=== PATIENT | female | born 1970 | race Caucasian/White ===

== ENCOUNTER 2024-02-28 11:26 | Emergency (ER) | payer MEDICAID, SELFPAY ==
[2024-02-28 11:30] VITALS: BP 139/83; PULSE 54; RESP 18; TEMP 36.5; O2SAT 98; BMI 24.0
--- NOTE | 2024-02-28 12:07 | CRLHL7_ITS ---
For Patients: As a result of the Century Cures Act, medical imaging exams and procedure reports are released immediately into your electronic medical record. You may view this report before your referring provider. If you have questions, please contact your health care provider. INDICATION: Chest pain, history of thoracic aortic aneurysm measuring 4.2 centimeters. TECHNIQUE: CT chest PE was acquired with 95 cc Isovue 370 intravenous contrast. COMPARISON: None. FINDINGS: Heart and vasculature: Contrast opacification of the pulmonary arterial tree is adequate. No sign of pulmonary embolism. Contrast opacification is not timed for optimization of the thoracic aorta limited evaluation of the lumen. Ascending thoracic aorta measures 4.2 centimeters. No pericardial effusion. Lungs and pleural: No pleural effusion or pneumothorax. Scattered areas of discoid atelectasis lung bases. Calcified granuloma within the lingula and right lower lobe. Lymph nodes/mediastinum: No mediastinal, hilar, or axillary adenopathy. Chest wall: No masses. Upper abdomen: Normal. Bones: Unremarkable for age. IMPRESSION: 1. No evidence of pulmonary embolus. 2. Fusiform enlargement of the ascending thoracic aorta. This has mildly enlarged compared to the 2019 examination (3.8 cm) although this measures unchanged from the given history. 3. Old granulomatous disease. Discoid atelectasis lung bases. Please note that all CT scans at this facility use dose modulation, iterative reconstruction, and/or weight-based dosing when appropriate to reduce radiation dose to as low as reasonably achievable. Dictated by Arnold Cherry MD @ 02/28/2024 12:56:12 PM (Electronically Signed)
--- NOTE | 2024-02-28 12:09 | ED_ITS ---
HPI - General Adult General Chief complaint: Unspecified Complaint, Adult Stated complaint: sent from [facility] Time Seen by Provider: 02/28/24 11:41 History of Present Illness HPI narrative: This 53-year-old female comes from clinic where she is sent here for CT angiogram of her chest. She had an echocardiogram at clinic with reassuring results. I did receive a phone call from the patient's doctor who requested she be sent here for CT angiogram. The patient had an episode of chest pain yesterday that lasted about 10 minutes. She was doing light activity at the time and states that the pain was really emanating from her mid upper back. She does have a history of a 4.2 cm thoracic aneurysm. She does not report any nausea, vomiting, lightheadedness, shortness of breath, or diaphoresis. 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 She does not report any prior exertional chest symptoms. She states that she has not been feeling quite right however over the past couple weeks and since the chest pain yesterday she has been more tired and fatigued. Related Data Home Medications ?Medication ?Instructions ?Recorded ?Confirmed trazodone 50 mg tablet 50 mg PO QPM PRN insomnia 02/28/24 02/28/24 Previous Rx's ?Medication ?Instructions ?Recorded ketorolac 10 mg tablet 10 mg PO Q8H 5 days #15 tabs 02/28/24 Allergies Allergy/AdvReac Type Severity Reaction Status Date / Time No Known Drug Allergies Allergy Verified 02/28/24 11:33 Review of Systems Status of ROS: Reports: 10 or more systems reviewed and unremarkable except as noted in History and below Narrative: Constitutional: No fevers, no weight gain or loss. Eyes: No discharge. No vision changes. HENT: No congestion, no sore throat, no ear pain. Cardiovascular: No palpitations. Respiratory: No shortness of breath, no wheezes, no cough. Gastrointestinal: No abdominal pain, no vomiting, no diarrhea. Genitourinary: No dysuria, no hematuria. Musculoskeletal: Normal range of motion. Skin: No rashes, no pruritis. Neurological: No dizziness, weakness, sensory change, speech change. Endo/Heme/Allergies: No bruising or bleeding. No polydipsia. Pysch: no suicidality, no anxiety, no insomnia. All other systems reviewed and are negative. PFSH PFSH Social History Smoking Status: Current every day smoker What tobacco products do you use: cigarettes Do you use any of these nicotine containing products: None How often do you have a drink containing alcohol: never AUDIT-C Alcohol total score: 0 Non-prescribed substance use: marijuana (any form) service: No Exam Narrative: Exam Narrative: Constitutional: Well-developed, well-nourished, no acute distress. HEENT: Normocephalic, atraumatic. Neck: Normal range of motion. Nontender. Supple. Heart: Regular. No murmurs. Normal rate. Intact distal pulses. Lungs: Clear to auscultation. No chest discomfort. No wheezes, rhonchi, or rales. Abdomen: Normal bowel sounds. Nontender. No rebound tenderness. Genitalia: Deferred. Back: No midline tenderness. Normal range of motion. Extremities: Normal range of motion. No injury. Skin: Intact. No rash. Warm. No erythema or pallor. Neurologic: No altered sensation. No weakness. Alert and oriented. Psychiatric: No suicidality. No anxiety or depression. No insomnia. Nursing notes and vitals signs are reviewed. Const: Vital Signs, click to edit/add: Vital Signs - 24 hr 02/28/24 11:30 02/28/24 12:51 Temperature 97.7 F Pulse Rate 61 Pulse Rate [Right Pulse Oximeter] 54 L Respiratory Rate 18 Blood Pressure 128/71 Blood Pressure [Ri ght Upper Arm] 139/83 Pulse Oximetry 98 96 Oxygen Delivery Me thod Room Air Course Vital Signs Vital signs: Initial Vital Signs Temperature 97.7 F 02/28/24 11:30 Temperature Source Temporal Artery Scan 02/28/24 11:30 Pulse Rate 54 L 02/28/24 11:30 Respiratory Rate 18 02/28/24 11:30 Blood Pressure 139/83 02/28/24 11:30 Blood Pressure Mean 101 02/28/24 11:30 Blood Pressure Position Sitting 02/28/24 11:30 Pulse Oximetry 98 02/28/24 11:30 Oxygen Delivery Method Room Air 02/28/24 11:30 Vital Signs Temperature 97.7 F 02/28/24 11:30 Pulse Rate 54 L 02/28/24 11:30 Respiratory Rate 18 02/28/24 11:30 Blood Pressure 139/83 02/28/24 11:30 Pulse Oximetry 98 02/28/24 11:30 Oxygen Delivery Method Room Air 02/28/24 11:30 Temperature 97.7 F 02/28/24 11:30 Pulse Rate 61 02/28/24 12:51 Respiratory Rate 18 02/28/24 11:30 Blood Pressure 128/71 02/28/24 12:51 Pulse Oximetry 96 02/28/24 12:51 Oxygen Delivery Method Room Air 02/28/24 11:30 Medical Decision Making MDM Narrative Medical decision making narrative: This patient was sent here for purposes of acquiring a CT angiogram of the chest. The patient had chest pain yesterday and is not having any symptoms currently. It was an isolated event yesterday lasting about 10 minutes. She did have an echocardiogram in clinic today and was sent here for CT imaging. An IV was established and CT imaging of the chest returns with no acute findings. There is no pulmonary embolism no sign of dissection. Her thoracic aorta measures at 3.8 cm. Lab results are also reassuring with a negative troponin. The patient was happy to hear these results in will be okay to be discharged home. I did provide a prescription for Toradol. Lab Data Labs: Lab Results 02/28/24 02/28/24 Range/Units 12:28 12:47 WBC 9.09 (4.50-11.00) K/uL RBC 4.64 (4.00-5.20) m/uL Hgb 14.2 (12.0-16.0) gm/dL Hct 42.4 (33.0-51.0) % MCV 91 (80-100) fL MCH 31 (26-34) pg MCHC 34 (32-36) gm/dL RDW Coeff of Gloria 11.9 (11.5-15.5) % Plt Count 218 (140-440) K/uL Neut % (Auto) 62.8 (42.0-72.0) % Lymph % (Auto) 29.2 (20-44) % Sheridan % (Auto) 6.4 (0.0-11.0) % Eos % (Auto) 1.2 (0.0-7.0) % Baso % (Auto) 0.3 (0.0-3.0) % Neut # (Auto) 5.71 (1.7-7.0) K/uL Lymph # (Auto) 2.65 (0.90-2.90) K/uL Sheridan # (Auto) 0.60 (0.00-0.90) K/UL Eos # (Auto) 0.11 (0.00-0.50) K/uL Baso # (Auto) 0.03 (0.00-0.30) K/uL Abs Immat Gran (auto) 0.01 (0.00-0.30) K/uL Imm/Tot Granulo (auto) 0.1 % Sodium 138 (135-149) mmol/L Potassium 4.0 (3.6-5.1) mmol/L Chloride 109 (96-114) mmol/L Carbon Dioxide 25 (20-32) mmol/L Anion Gap 4 L (7-15) mEq/L BUN 10 (7-30) mg/dL Creatinine 0.6 (0.5-1.5) mg/dL Estimated Creat Clear 92.56 Estimated GFR 107 ml/min Glucose 97 (60-115) mg/dL Calcium 9.3 (8.4-10.6) mg/dL C-Reactive Protein 0.5 (0.5-1.0) mg/dL POC Troponin I 0.00 L (0.01-0.04) ng/ml Imaging Data CT scan - chest: Radiologist's impression: 1. No evidence of pulmonary embolus. 2. Fusiform enlargement of the ascending thoracic aorta. This has mildly enlarged compared to the 2019 examination (3.8 cm) although this measures unchanged from the given history. 3. Old granulomatous disease. Discoid atelectasis lung bases. Discharge Plan Discharge Clinical Impression: Atypical chest pain Patient Disposition: Home, Self-Care Condition: Stable Additional Instructions: Continue current plans. Follow up with MD as scheduled and needed. Return if worsening. Prescriptions: New ketorolac 10 mg tablet 10 mg PO Q8H 5 Days Qty: 15 0RF No Action trazodone 50 mg tablet 50 mg PO QPM PRN (Reason: insomnia) Follow Up/Referrals: Nguyen Calvillo MD [Staff Physician] - Stand Alone Forms: [employer] Info Instructions
--- OUTSIDE RECORDS SUMMARY | 2024-02-28 12:16 | XMS_ITS | Clinical Summary ---
Author Organization [facility] Address [place], [place] [address] Care Team Providers Care Books Salesperson Name Role Phone Lizzy Machado MD Unavailable Pcp, No Primary Care Provider Unavailabl e Allergies No known active allergies Medications Medication Sig Dispensed Refills Start Date End Date Status acetaminophen (TYLENOL ORAL) Take by mouth. Active traZODone (DESYREL) 50 mg tabletIndications: Insomnia, unspecified type Take 1 Tablet (50 mg) by mouth at bedtime if needed for Sleep. 90 Tablet 3 02/13/2024 Active omeprazole 20 mg tabletIndications: Globus sensation Take 1 Tablet (20 mg) by mouth once daily before a meal. 90 Tablet 3 02/14/2024 Active traZODone (DESYREL) 50 mg tabletIndications: Insomnia, unspecified type Take 1 Tablet (50 mg) by mouth at bedtime if needed for Sleep. 90 Tablet 11/02/2023 02/13/2024 Discontinued (Reorder (E-cancel not sent)) omeprazole 20 mg tabletIndications: Globus sensation Take 1 Tablet (20 mg) by mouth once daily before a meal. 30 Tablet 02/13/2024 02/14/2024 Discontinued (*Availabili ty/Formulary change/Cost of medication) Active Problems Problem Noted Date Diagnosed Date Pap smear for cervical cancer screening 11/22/19 24 Overview: 10/2023 NIL/HPV negative. Plan: Pap/HPV due 10/2028. Prediabetes 02/06/2019 Chronic diarrhea 09/21/2018 Enlarged thoracic aorta 01/18/2018 Hypokalemia 12/05/2016 History of diverticulitis of colon 12/05/2016 Bicuspid aortic valve with a scending aortic aneurysm (4.2cm in 01/2024) 11/16/2016 Stress 11/04/2016 Abdominal pain 09/27/2016 SIMON (generalized anxiety disorder) 06/06/2012 Severe episode of recurrent major depressive disorder, without psychotic features 06/06/2012 Insomnia 06/06/2012 Tobacco use 06/06/2012 Hyperlipidemia 06/06/2012 Resolved Problems Problem Noted Date Diagnosed Date Resolved Date Adenomatous colon polyp 11/26/2015 05/0 01/2017 Overview: Colonoscopy 10/2015 polyp repeat in 5 years Diverticulitis 06/06/2012 12/05/2016 Encounters Date Type Department Care Team Description 02/28/2024 11:05 AM CDT Office Visit [facility] [place] [address] [place] [address] Rupa Fernandez MD Chest Pain 02/28/2024 10:00 AM CDT [facility] Visit [facility] [address] [place] [address] Cardiovascular Diagnostic Testing (Stress echo cancelled) 02/28/2024 Travel 02/21/2024 4:00 PM CDT Ancillary Procedure [facility] [place] [address] [place] [address] 02/21/2024 Travel 02/16/2024 Telephone [facility] [place] [address] [place] [address] Stephen Hoskins MD Results (LYME SCREEN W/REFLEX, RA QUANTITATIVE, SEDIMENTATION RATE, C-REACTIVE PROTEIN,CYCLIC CITRULLINE PEPTIDE/) 02/14/[address] [address] Rupa Fernandez MD Refill Request (need medicine switched from tablets to capsules) 02/13/2024 2:40 PM CDT Office Visit [address] [place] [address] Rupa Fernandez MD Follow Up (David 02/05 chest pain - symptoms have improved with taking Vit D. Still feels like there is something in chest/throat, making her cough. ); Kidney Problem (Still has kidney pain and gets winded) 02/13/2024 2:15 PM CDT Ancillary Procedure [address] [address] 02/13/2024 1:40 PM CDT Office Visit [address] [address] Stephen Hoskins MD Musculoskeletal Problem (Consult right hand 3rd finger pain, has been seen in the past, [address] Fernandez) 02/13/2024 1:00 PM CDT Ancillary Procedure [address] [address] 02/13/2024 Travel 02/07/2024 Orders Only [address] [address] Sailaja Hernandez PA 1 scan: (1-Ord) NFLD-EKG-7.8.24 02/06/2024 3:00 PM CDT Ancillary Procedure [address] [address] 02/06/2024 2:05 PM CDT Office Visit [address] [address] Sailaja Hernandez PA Chest Pain 02/06/2024 Travel 02/06/2024 Nurse Triage [facility] Centralized Nurse Triage Pcp, No Chest Pain/problem from Last 3 Months Immunizations Name Administration Dates Next Due AMB INFLUENZA, IIV4 (AGE=>6M OS) V (Flu Clinic Only) 04/15/2017 Hepatitis B (Adult) 05/23/2013 Hepatitis B (Peds) 05/23/2013 Influenza Virus, Unspecified 05/01/2021, 04/01/2013,05/14/2011,2009 Influenza, IIV3 (Age >=3 years) 04/01/20 13,05/14/2011,05/11/2010,2007,06/05/2001 Influenza, IIV4 04/16/2020, 9,04/12/2018,2015,04/08/2016,05/01/2015,04/11/2015 Influenza, IIV4 (=>6mos) MDV 04/15/2017 MMR 09/01/1986,08/01/1973 Oral Polio Vaccine 09/01/1986,08/01/1973 Pneumococcal Poly,23-Valent (Pneumovax) 01/02/2014,06/04/2012 TD, UNSPECIFIED 07/02/2003,12/30/1998 Td (Age >=7 Years) 07/02/2003,12/30/1998 Tdap 11/09/2023,05/23/2013 Zoster (Shingrix-RZV, recombinant) 11/09/2023 Family History Medical History Relation Name Comments Heart Disease Maternal Grandfather Heart attack Maternal Grandfather Stroke Maternal Grandfather Alzheimer's disease Maternal Grandmother Glaucoma Maternal Grandmother Anemia Mother Coronary artery disease Mother Diabetes type II Mother Hypertension Mother Kidney failure Mother dialysis at a ge 69.?was diabetic, had heart valve replacement Alcoholism Paternal Grandfather Cancer-ovarian Paternal Grandmother d 30s Mental illness Son also divertic ulitis in teens, had bowel ressection in 20s Cancer-breast No Family History Relation Name Status Comments Father Alive Maternal Grandfather Maternal Grandmother Mother Paternal Grandfather Paternal Grandmother Son Social History Tobacco Use Types Packs/Day Years Used Date Smoking Tobacco: Every Day Cigarettes 0.5 40.6 Started: 08/01/1983 Smokeless Tobacco: Never Tobacco Cessation:Ready to Q uit: No; Counseling Given: Yes Comments:1/2 ppd Alcohol Use Standard Drinks/Week Comments Not Currently 0 (1 standard drink = 0.6 oz pur e alcohol) 1 beer 2 months ago PHQ-2 Answer Date Recorded PHQ-2 TOTAL SCORE 0 11/09/2023 Social Connections Answer Date Recorded Frequency of Communication with Friends and Fami ly 0 11/09/2023 Financial Resource Strain Answer Date R ecorded Difficulty of Paying Living Expenses 3 11/09/2023 Difficulty of Paying Living Expenses Not on file 11/09/2023 Food Insecurity Answer Date Recorded Worried About Running Out of Food in the Last Ye ar 1 11/09/2023 Transportation Needs Answer Date Record ed Lack of Transportation (Medical) 1 11/09/2023 Housing Stability Answer Date Recorded Unable to Pay for Housing in the Last Year 1 11/09/2023 Sex and Gender Information Value Date Recorded Sex Assigned at Not on file Gender Identity Not on file Sexual Orientation Not on file Obstetrics History Para Term AB IAB SAB Ectopic Multiple Livin g Live Births 2 2 2 2 Date Outcome GA Total Labor Labor/2nd/3rd Weight Sex Type Anes PTL Serene A1 A5 Name Clin Term Term Last Filed Vital Signs Vital Sign Reading Time Taken Comments Blood Pressure 139/66 02/28/2024 11:14 AM CDT Pulse 61 02/28/2024 11:14 AM CDT Temperature 36.6 ??C (97.8 ??F) 02/13/2024 1:36 PM CD T Respiratory Rate 20 09/21/2023 2:47 PM [employer]ENIOR [employer] Oxygen Saturation 99% 02/28/2024 11:14 AM CDT Inhaled Oxygen Concentration - - Weight 67.1 kg (148 lb) 11/09/2023 3:53 PM CDT Height 158.2 cm (5' 2.28) 11/09/2023 3:53 PM CD T Body Mass Index 26.82 11/09/2023 3:53 PM CDT Plan of Treatment Upcoming Encounters Date Type Department Care Team (Late st Contact Info) Description 03/02/2024 8:35 AM CDT Procedure Only [facility] [place] [address] [place] [address] Stephen Hoskins MD [address] [place] [address] 03/06/2024 3:05 PM CDT Office Visit [facility] [place] [address] [place] [address] Rupa Fernandez MD [address] [place] [address] 03/22/2024 2:00 PM CDT Office Visit [facility] [address] [facility] [address] [place] [address] Baltazar Pete MD [address] [facility] [address] [place] [address] Health Maintenance Due Date Last Done Comments HIV for age 15-65 1984 Hepatitis C screening for ag e 18-79 1987 Pneumococcal series for age 6-64 (2 of 2 - PCV) 01/02/2015 01/02/2014, 06/04/2012 Colonoscopy through age 75 11/24/2020 11/25/2015 COVID-19 vaccine series (3 - season) 2023 03/28/2021, 02/25/2021 Zoster (shingles) series for age 50+ (2 of 2) 01/04/2024 11/09/2023 Influenza for age 50-64 04/01/2024 05/01/20 21, 04/16/2020, 04/27/2019, Additional history exists BMI (ht and wt on same day) for age 18+ 11/08/2024 11/09/2023, 06/12/2019, 04/17/2019, Additional history exists Depression screening for age 12+ 11/09/2024 11/10/2023, 11/09/2023, 07/07/2020, Additional history exists Low Dose CT (for lung CA) ag e 50-80 02/05/2025 02/06/2024, 12/08/2017 Mammogram for age 45-75 02/12/2025 02/13/20 24, 02/06/2019, 10/06/2017, Additional history exists Lipids for age 45-75 11/08/2028 11/09/2023, 02/06/2019, 10/05/2017, Additional history exists Pap test for age 21-65 11/08/2028 , 11/09/2023, 02/06/2019, Additional history exists Tetanus booster 11/08/2033 11/09/2023, 05/02, 07/02/2003, Additional history exists Tdap Completed 11/09/2023, 05/23/2013 Medical Devices Implanted Type Area Product Introduction Manager Device Identifier Shelf Expiration Date Model / Serial / Lot System Control Permanentpressure - [id number] Implanted:Qty: 1 on 06/24/2010 at [facility] Right: Fallopian Tube [employer] 04/01/2013 [id number] / / [id number] Description:1 kit (box) used with 2 separate essure's - 1 pkg used from box, other defective and sent back to company System Control Permanentpressure - [id number] Implanted:Qty: 1 on 06/24/2010 at [facility] Left: Fallopian Tube [employer] 12/30/2012 [id number] / / [id number] Description:1 kit (box) used with 2 separate essure's - 1 pkg used from box, other defective and sent back to [employer] Procedures Procedure Name Priority Date/Time Associated Diagnosis Comments ECHO TTE COMPLETE WO CONTRAST Routine 02/28/2024 11:05 AM CDT Chest tightness US RENAL AND BLADDER COMPLETE Routine 02/21/2024 3:58 PM CDT Renal cyst LYME SCREEN W/REFLEX Routine 02/13/2024 4:05 PM CDT Effusion of proximal interphalangeal (PIP) joint of finger Hand arthropathy RA QUANTITATIVE Routine 02/13/2024 4:05 PM CDT Effusion of proximal interphalangeal (PIP) joint of finger Hand arthropathy SEDIMENTATION RATE Routine 02/13/2024 4: 05 PM CDT Effusion of proximal interphalangeal (PIP) joint of finger Hand arthropathy C-REACTIVE PROTEIN Routine 02/13/2024 4: 05 PM CDT Effusion of proximal interphalangeal (PIP) joint of finger Hand arthropathy CYCLIC CITRULLINE PEPTIDE Routine 02/13/2024 4:05 PM CDT Effusion of proximal interphalangeal (PIP) joint of finger Hand arthropathy XR FINGER 3 VIEWS RIGHT Routine 02/13/2024 2:48 PM CDT Effusion of proximal interphalangeal (PIP) joint of finger XR MAMMO BILAT SCREENING Routine 02/13/2024 1:05 PM CDT Breast cancer screening EKG 12 LEAD Routine 02/07/2024 2:32 PM CDT Chest pain in adult VT READING EKG - NO CHARGE, COMP ONLY Routine 02/07/2024 2:31 PM CDT Chest pain in adult PRO-BNP Add On 02/06/2024 2:58 PM CDT Chest pain in adult SOB (shortness of breath) HERNANDEZ (dyspnea on exertion) TSH WITH REFLEX Routine 02/06/2024 2:58 PM CDT Palpitations SOB (shortness of breath) HERNANDEZ (dyspnea on exertion) Fatigue, unspecified type VITAMIN D 25 (DEFICIENCY) Routine 02/06/2024 2:58 PM CDT Fatigue, unspecified type Vitamin D deficiency CBC W PLT NO DIFF Routine 02/06/2024 2:5 8 PM CDT Chest pain in adult SOB (shortness of breath) HERNANDEZ (dyspnea on exertion) CT CHEST PE STUDY STAT 02/06/2024 2:5 4 PM CDT Chest pain in adult SOB (shortness of breath) HERNANDEZ (dyspnea on exertion) LIPID PANEL Routine 11/09/2023 5:01 PM CDT Screening cholesterol level HPV THIN PREP Routine 11/09/2023 4:54 PM CDT Cervical cancer screening from Last 3 Months or Most Recently Relevant to Health Maintenance Results * ECHO TTE COMPLETE WO CONTRAST (02/28/2024 11:05 AM CDT) AORTIC VALVE MEAN PG 8 mmHg EJECTION FRACTION 59 % LVEDD 4.9 cm Anatomical Region Laterality Modality Ultrasound 02/28/2024 10:1 6 AM CDT Narrative 02/28/2024 11:32 AM CDT ECHOCARDIOGRAM RAQUEL LUI ?Accession#: ?? [id number] : ?1970 53 years Study Date: ?? 02/28/2024 10:16:38 AM Gender: F ? BP: ? 139/66 mmHg Height: 157.00 cm ? BSA: ?1.68 m? ? ? Weight: 67.00 kg ?Tech: ? MBF ?Referring MD: RUPA FERNANDEZ Site: ? [facility] [place] Location: [facility] Patient Location: Outpatient. Procedure: 2D, Color Doppler and Spectral Doppler. Indication for study: Chest tightness Cardiac Rhythm: Sinus bradycardia.Study quality: Fair. Final Impressions: 1. Normal left ventricular size, normal wall thickness, normal global systolic function, calculated EF of 59 %. 2. The aortic valve is bicuspid, mild stenosis and no regurgitation. 3. Right ventricular cavity size is normal, global systolic RV function is normal. 4. The ascending aorta is dilated with a maximal diameter of 4.2 cm. Chamber Sizes and Function Normal left ventricular size, normal wall thickness, normal global systolic function, calculated EF of 59 %. Left atrial size is normal. Right ventricular cavity size is normal, global systolic RV function is normal. RV wall thickness is normal. The right atrium is normal. Right atrial volume index is 26 ml/m? ? ?. Right atrial area is 16 cm? ? ?. The pulmonary artery is of normal size and origin. The sinus of Valsalva is normal sized. The ascending aorta is dilated. Valves, RV Pressures and Diastolic Function The aortic valve is bicuspid, mild stenosis and no regurgitation. The mitral valve is normal in structure, no mitral regurgitation. Normal diastolic function. The tricuspid valve is normal in structure. Tricuspid regurgitation is trace regurgitation. The pulmonic valve is normal. No pulmonary regurgitation. Masses, Effusion, Shunts There is no pericardial effusion. The inferior vena cava is normal sized, respiratory size variation greater than 50%. No left to right shunting was detected by limited color flow Doppler interrogation of the interatrial septum. MEASUREMENTS AND CALCULATIONS 2-D Measurements and LV Function: LVID (d) 4.9 cm Planimetered EF 59 % LVID (s) 3.4 cm LV FS% (2D) ? 30 % IVS (d) ??1.1 cm LVOT diameter ?? 2.4 cm LVPW (d) 1.0 cm HR ?51 bpm Ao Sinus 3.5 cm LA Vol index ?23 ml/m2 Asc Ao ?? 4.2 cm RA Vol index ?26 ml/m2 ?RA area ? 16 cm?RV Max 4C (d) ?? 3.8 cm Diastology: Mitral ?Tissue Doppler E Peak 0.6 m/s ??e', Septum ? 0.07 m/s A Peak 0.5 m/s ??e', Lateral ?0.08 m/s E/A ?1.3 ?E/e' Average ?? 7.71 DT ? 216 msec Aortic Valve: Vmax ? 2.0 m/s ??ALESHIA (V) ?? 1.77 cm? ? ? VTI ?0.46 m ?? ALESHIA (I) ?? 1.93 cm? ? ? LVOT V max 0.8 m/s ??Max PG ?16 mmHg LVOT VTI ?? 0.20 m ?? Mean PG ?? 8 mmHg SV ? 88 ml ?Dim Index 0.44 SV index ?? 53 ml/m? ? ? CO ?4.5 l/min ?CI ?2.7 l/min/m? ? ? Mitral Valve: MVA ?3.5 cm? ? ? MV P 1/2 63 msec Tricuspid Valve and estimated PA pressures: TAPSE 2.3 cm . This study was interpreted by an PSYCHIATRIC accredited facility. ??Final ?? Procedure Note Vick Rodríguez MD - 02/28/2024 ECHOCARDIOGRAM RAQUEL LUI : 1970 53 years Study Date: 02/28/2024 10:16:38 AM Gender: F BP: 139/66 mmHg Height: 157.00 cm BSA: 1.68 m? ? ? Weight: 67.00 kg Tech: [facility] Referring MD: RUPA FERNANDEZ Site: [facility] [place] Location: [facility] Patient Location: Outpatient. Procedure: 2D, Color Doppler and Spectral Doppler. Indication for study: Chest tightness Cardiac Rhythm: Sinus bradycardia.Study quality: Fair. Final Impressions: 1. Normal left ventricular size, normal wall thickness, normal globalsystolic function, calculated EF of 59 %. 2. The aortic valve is bicuspid, mild stenosis and no regurgitation. 3. Right ventricular cavity size is normal, global systolic RV functionis normal. 4. The ascending aorta is dilated with a maximal diameter of 4.2 cm. Chamber Sizes and Function Normal left ventricular size, normal wall thickness, normal globalsystolic function, calculated EF of 59 %. Left atrial size is normal.Right ventricular cavity size is normal, global systolic RV function isnormal. RV wall thickness is normal. The right atrium is normal. Rightatrial volume index is 26 ml/m? ? ?. Right atrial area is 16 cm? ? ?. Thepulmonary artery is of normal size and origin. The sinus of Valsalva isnormal sized. The ascending aorta is dilated. Valves, RV Pressures and Diastolic Function The aortic valve is bicuspid, mild stenosis and no regurgitation. Themitral valve is normal in structure, no mitral regurgitation. Normaldiastolic function. The tricuspid valve is normal in structure. Tricuspidregurgitation is trace regurgitation. The pulmonic valve is normal. Nopulmonary regurgitation. Masses, Effusion, Shunts There is no pericardial effusion. The inferior vena cava is normal sized,respiratory size variation greater than 50%. No left to right shunting wasdetected by limited color flow Doppler interrogation of the interatrialseptum. MEASUREMENTS AND CALCULATIONS 2-D Measurements and LV Function: LVID (d) 4.9 cm Planimetered EF 59 % LVID (s) 3.4 cm LV FS% (2D) 30 % IVS (d) 1.1 cm LVOT diameter 2.4 cm LVPW (d) 1.0 cm HR 51 bpm Ao Sinus 3.5 cm LA Vol index 23 ml/m2 Asc Ao 4.2 cm RA Vol index 26 ml/m2 RA area 16 cm? ? ? RV Max 4C (d) 3.8 cm Diastology: Mitral Tissue Doppler E Peak 0.6 m/s e', Septum 0.07 m/s A Peak 0.5 m/s e', Lateral 0.08 m/s E/A 1.3 E/e' Average 7.71 DT 216 msec Aortic Valve: Vmax 2.0 m/s ALESHIA (V) 1.77 cm? ? ? VTI 0.46 m ALESHIA (I) 1.93 cm? ? ? LVOT V max 0.8 m/s Max PG 16 mmHg LVOT VTI 0.20 m Mean PG 8 mmHg SV 88 ml Dim Index 0.44 SV index 53 ml/m? ? ? CO 4.5 l/min CI 2.7 l/min/m? ? ? Mitral Valve: MVA 3.5 cm? ? ? MV P 1/2 63 msec Tricuspid Valve and estimated PA pressures: TAPSE 2.3 cm . This study was interpreted by an PSYCHIATRIC accredited facility. Final Rupa Fernandez MD ECHO ORD * US RENAL AND BLADDER COMPLETE (02/21/2024 3:58 PM CDT) Anatomical Region Laterality Modality Abdomen, AORTA, KIDNEYS Ultrasou nd 02/22/2024 3:35 PM CDT Impressions 02/22/2024 3:35 PM CDT No suspicious renal lesion. Dictated by Vick Curtis MD @ 02/22/2024 3:35:48 PM (Electronically Signed) Narrative 02/22/2024 3:35 PM CDT For Patients: ??As a result of the Cures Act, medical imaging exams and procedure reports are released immediately into your electronic medical record. ??You may view this report before your referring provider. ??If you have questions, please contact your health care provider. CLINICAL HISTORY: Renal cyst COMPARISON: CT 03/20/2020 TECHNIQUE: Benites scale and color Doppler images were acquired of the kidneys and urinary bladder. FINDINGS: Incidental extrarenal pelvis on the right. There is no evidence of hydronephrosis, mass or calculus. The right kidney measures 12.6cm in length and the left kidney measures 11.2cm in length. The renal cortex appears of normal thickness. The urinary bladder appears normal. Color Doppler images reveal a normal appearance of both ureteral jets. There is no evidence of bladder calculi or diverticula. Prevoid bladder volume 428 cc. Postvoid bladder volume is 17 cc. Residual volume 4 percent. Procedure Note Vick Curtis MD - 02/22/2024 For Patients: As a result of the Cures Act, medical imagingexams and procedure reports are released immediately into your electronicmedical record. You may view this report before your referring provider.If you have questions, please contact your health care provider. CLINICAL HISTORY: Renal cyst COMPARISON: CT 03/20/2020 TECHNIQUE: Benites scale and color Doppler images were acquired of the kidneys andurinary bladder. FINDINGS: Incidental extrarenal pelvis on the right. There is no evidence ofhydronephrosis, mass or calculus. The right kidney measures 12.6cm inlength and the left kidney measures 11.2cm in length. The renal cortexappears of normal thickness. The urinary bladder appears normal. Color Doppler images reveal a normalappearance of both ureteral jets. There is no evidence of bladder calculior diverticula. Prevoid bladder volume 428 cc. Postvoid bladder volume is17 cc. Residual volume 4 percent. IMPRESSION: No suspicious renal lesion. Dictated by Vick Curtis MD @ 02/22/2024 3:35:48 PM (Electronically Signed) Rupa Fernandez MD US * SEDIMENTATION RATE (02/13/2024 4:05 PM CDT) [facility] SEDIMENTATION RATE 6 <30 mm/hr 2023 12:57 AM CDT [facility] Blood BLOOD SPECIMEN / Unknown Venipuncture / Unknown 02/13/2024 4:05 PM CDT 02/13/2024 4:07 PM CDT Stephen Hoskins MD HEMATOLOGY Performing Organization Address City/[facility]/ZIP Co de Phone Number [facility] [address] [place] [address], * CYCLIC CITRULLINE PEPTIDE (02/13/2024 4:05 PM CDT) [facility] CCP Antibody,IgG/I gA <4.6 <=19.9 CU 02/15/2024 2:[address] [facility] Blood BLOOD SPECIMEN / Unknown Venipuncture / Unknown 02/13/2024 4:05 PM CDT 02/13/2024 4:07 PM CDT Narrative [facility] - 02/15/2024 2:01 PM CDT Negative <20 Positive >=20 The following results were obtained with the [employer] QUANTA Flash CCP3 chemiluminescent immunoassay. Values obtained with different manufacturers' assay methods may not be used interchangeably. Stephen Hoskins MD SEND OUTS [facility] [address] [place] [address], * LYME SCREEN W/REFLEX (02/13/2024 4:05 PM CDT) [facility] LYME SCREEN W/REFLEX Negative Negative 02/15/2024 10:46 AM CDT [facility] Comment: No laboratory evidence of infection with B. burgdorferi (Lyme disease). Negative results may occur in patients recently infected (less than or equal to 14 days) with B. burgdorferi. If recent infection is suspected, repeat testing on a new sample collected in 7-14 days is recommended. Blood BLOOD SPECIMEN / Unknown Venipuncture / Unknown 02/13/2024 4:05 PM CDT 02/13/2024 4:07 PM CDT Stephen Hoskins MD SEND OUTS Performing Organization Address City/[facility]/ZIP Co de Phone Number [facility] [address] [place] [address], [place] * RA QUANTITATIVE (02/13/2024 4:05 PM CDT) Pathologist [facility] RHEUMATOID FACTOR,QUANT <10.00 <14.00 IU/mL 02/14/2024 5:59 PM CDT [facility] Blood BLOOD SPECIMEN / Unknown Venipuncture / Unknown 02/13/2024 4:05 PM CDT 02/13/2024 4:07 PM CDT Stephen Hoskins MD SEND OUTS Performing Organization Address [facility] Co de Phone Number [facility] [address] [place] [address], [place] * C-REACTIVE PROTEIN (02/13/2024 4:05 PM CDT) Pathologist [facility] C-REACTIVE PROTEIN <0.3 <0.5 mg/dL 02/14/2024 2:[address] [facility] Blood BLOOD SPECIMEN / Unknown Venipuncture / Unknown 02/13/2024 4:05 PM CDT 02/13/2024 4:07 PM CDT Stephen Hoskins MD CHEMISTRY Performing Organization Address [facility] Co de Phone Number [facility] [address] [place] [phone], [place] * XR FINGER 3 VIEWS RIGHT (02/13/2024 2:48 PM CDT) Anatomical Region Laterality Modality Finger Computed Radiogr aphy 02/16/2024 6:14 AM CDT Narrative 02/16/2024 6:14 AM CDT For Patients: ??As a result of the Cures Act, medical imaging exams and procedure reports are released immediately into your electronic medical record. ??You may view this report before your referring provider. ??If you have questions, please contact your health care provider. Indication: Effusion of PIP joint Technique: Three views right long finger Comparison: 06/09/2018 Findings: Prominent hypertrophic spurring at the dorsal aspect of the right long finger proximal interphalangeal joint. Adjacent chronic ossicle noted. Soft tissue swelling is present. No acute fracture. No erosions. Spurring also at the distal interphalangeal joint. Narrowing and spurring at the index finger PIP joint. Mild degenerative changes at the 1st MCP joint. 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 Dictated by Vick Curtis MD @ 02/16/2024 6:14:27 AM (Electronically Signed) Procedure Note Vick Cutris MD - 02/16/2024 For Patients: As a result of the Cures Act, medical imagingexams and procedure reports are released immediately into your electronicmedical record. You may view this report before your referring provider.If you have questions, please contact your health care provider. Indication: Effusion of PIP joint Technique: Three views right long finger Comparison: 06/09/2018 Findings: Prominent hypertrophic spurring at the dorsal aspect of the right longfinger proximal interphalangeal joint. Adjacent chronic ossicle noted.Soft tissue swelling is present. No acute fracture. No erosions. Spurringalso at the distal interphalangeal joint. Narrowing and spurring at theindex finger PIP joint. Mild degenerative changes at the 1st MCP joint. 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 Dictated by Vick Curtis MD @ 02/16/2024 6:14:27 AM (Electronically Signed) Stephen Hoskins MD GENERAL IMAGING * XR MAMMO BILAT SCREENING (02/13/2024 1:05 PM CDT) Anatomical Region Laterality Modality BREASTS, Breast Left, Breast Right Bilateral Mammography Impressions 02/13/2024 4:01 PM CDT ??There is no radiographic evidence for malignancy. ??Recommend annual mammograms. MAMMOGRAM ASSESSMENT: ??ACR 1 Negative PATIENTS: You will also receive a letter with your examination results in an easy to read format. ??If you have questions about your results, please contact your referring provider. Narrative 02/13/2024 4:01 PM CDT For Patients: As a result of the Century Cures Act, medical imaging exams and procedure reports are released immediately into your electronic medical record. You may view this report before your referring provider. If you have questions, please contact your health care provider. XR MAMMO BILAT SCREENING [[id number]] CLINICAL HISTORY: ??This is an asymptomatic 53 y.o. patient. INDICATION FOR EXAM: Mammogram Screening. TECHNIQUE: CC & MLO views were obtained. ??This study was evaluated with the assistance of Computer-Aided Detection. COMPARISON FILM: Yes 02/06/19 [facility] 10/04/17 [facility] FINDINGS: ??There are scattered areas of fibroglandular density. There are no dominant masses, suspicious micro calcifications or areas of architectural distortion. Rupa Fernandez MD MAMMO * EKG 12 LEAD (02/07/2024 2:32 PM CDT) Sailaja CHEN EKG ORD * VT READING EKG - NO CHARGE, COMP ONLY (02/07/2024 2:31 PM CDT) Sailaja CHEN PB - PROVIDER READINGS * TSH WITH REFLEX (02/06/2024 2:58 PM CDT) TSH 2.25 0.27 - 4.20 uIU/mL 02/07/2024 6:40 AM CDT [facility] Blood BLOOD SPECIMEN / Unknown Venipuncture / Unknown 02/06/2024 2:58 PM CDT 02/06/2024 2:59 PM CDT Narrative [facility] - 02/07/2024 6:40 AM CDT In Adults, TSH values between 5.00 and 10.00 uIU/ml do not necessarily indicate the presence of Hypothyroidism. Correlation with clinical findings such as presence of goiter and/or Thyroperoxidase (TPO) Antibody may be helpful. For more information please refer to LOULOU 2004; 291: 228-238. Sailaja CHEN CHEMISTRY Performing Organization Address [facility] Co de Phone Number [facility] [address] [place] [id number], * VITAMIN D 25 (DEFICIENCY) (02/06/2024 2:58 PM CDT) VITAMIN D TOTAL 20.6 20.0 - 80.0 ng/mL 02/07/2024 6:[address] [facility] Blood BLOOD SPECIMEN / Unknown Venipuncture / Unknown 02/06/2024 2:58 PM CDT 02/06/2024 2:59 PM CDT Narrative [facility] - 02/07/2024 6:40 AM CDT ? Vitamin D Status Deficiency: ? <20 ng/mL Insufficiency: ?20-29 ng/mL Sufficiency: ?30-80 ng/mL Possible Toxicity: ??>80 ng/mL Based on [place] of Medicine recommendations Biotin supplements may cause clinically significant interference for this test assay. ??If interference is suspected, it is strongly recommended that biotin is discontinued for at least one week prior to retesting. Sailaja CHEN SEND OUTS Performing Organization Address [facility]/ZIP Co de Phone Number [facility] [address] [place] [id number], * CBC W PLT NO DIFF (02/06/2024 2:58 PM CDT) WHITE BLOOD COUNT 9.3 4.5 - 11.0 thou/cu mm 02/06/2024 3:04 PM CDT [facility] RED BLOOD COUNT 4.63 4.00 - 5.20 mil/cu mm 02/06/2024 3:04 PM CDT [facility] HEMOGLOBIN 14.7 12.0 - 16.0 g/dL 02/06/2024 3:04 PM CDT [facility] HEMATOCRIT 42.5 33.0 - 51.0 % 02/06/2024 3:04 PM CDT [facility] MCV 92 80 - 100 fL 02/06/2024 3:04 PM CDT [facility] MCH 31.7 26.0 - 34.0 pg 02/06/2024 3:04 PM CDT [facility] MCHC 34.6 32.0 - 36.0 g/dL 02/06/2024 3:04 PM CDT [facility] RDW 12.9 11.5 - 15.5 % 02/06/2024 3:04 PM CDT [facility] PLATELET COUNT 248 140 - 440 thou/cu mm 02/06/2024 3:04 PM CDT [facility] MPV 8.4 6.5 - 11.0 fL 02/06/2024 3:04 PM CDT [facility] Blood BLOOD SPECIMEN / Unknown Venipuncture / Unknown 02/06/2024 2:58 PM CDT 02/06/2024 2:59 PM CDT Sailaja CHEN HEMATOLOGY [facility] [address] [place] [address], * PRO-BNP (02/06/2024 2:58 PM CDT) [facility] PRO-BNP <36 <125 pg/mL 02/07/2024 6:43 AM CDT [facility] Blood BLOOD SPECIMEN / Unknown Venipuncture / Unknown 02/06/2024 2:58 PM CDT 02/06/2024 2:59 PM CDT Narrative [facility] - 02/07/2024 6:43 AM CDT The following cut-points have been suggested for the use of proBNP for the diagnostic evaluation of heart failure (HF) in patient with acute dyspnea. Patients with eGFR >= 60 Diagnosis (rule in CHF) ? <50 Years Old ?450 pg/mL 50 - 75 Years Old ?900 pg/mL >75 Years Old ? 1800 pg/mL Exclusion (rule out CHF) Age Independent ?300 pg/mL A cutoff of 1200 pg/mL for patients with an eGFR <60 yields a diagnostic sensitivity of 89% and specificity of 72% for acute congestive heart failure. ? Sailaja CHEN SEND OUTS [facility] [address] [place] [address], * CT CHEST PE STUDY (02/06/2024 2:54 PM CDT) Anatomical Region Laterality Modality CHEST, THORAX, HEART Computed To mography 02/06/2024 3:14 PM CDT Impressions 02/06/2024 3:[address] evidence of pulmonary thromboembolic disease. 2. No intrathoracic mass or consolidation. Please note that all CT scans at this facility use dose modulation, iterative reconstruction, and/or weight-based dosing when appropriate to reduce radiation dose to as low as reasonably achievable. Dictated by Vick Spencer MD @ 02/06/2024 3:14:07 PM (Electronically Signed) Narrative 02/06/2024 3:14 PM CDT For Patients: ??As a result of the Cures Act, medical imaging exams and procedure reports are released immediately into your electronic medical record. ??You may view this report before your referring provider. ??If you have questions, please contact your health care provider. INDICATION: Chest pain. Dyspnea. TECHNIQUE: CT chest PE was acquired with 100 cc Omnipaque 350 IV contrast. COMPARISON: None FINDINGS: Pulmonary Arteries: No CT evidence of pulmonary thromboembolic disease. No pulmonary hypertension or right ventricular strain. Heart and Mediastinum: The visualized portions of the thyroid are normal. No axillary or supraclavicular lymphadenopathy. No mediastinal, hilar or retrocrural lymphadenopathy. Normal heart size. Ectasia of the ascending aorta measuring 4.2 cm. ?? Lungs and Airways: Calcified granuloma. Subsegmental atelectasis. No endoluminal lesion. Pleura: The pleural spaces are normal. Abdomen: The visualized upper abdominal organs are unremarkable. Bones and soft tissues: The skeletal structures and soft tissues of the chest wall are unremarkable. Procedure Note Vick Spencer MD - 02/06/2024 For Patients: As a result of the Cures Act, medical imagingexams and procedure reports are released immediately into your electronicmedical record. You may view this report before your referring provider.If you have questions, please contact your health care provider. INDICATION: Chest pain. Dyspnea. TECHNIQUE: CT chest PE was acquired with 100 cc Omnipaque 350 IV contrast. COMPARISON: None FINDINGS: Pulmonary Arteries: No CT evidence of pulmonary thromboembolic disease. Nopulmonary hypertension or right ventricular strain. Heart and Mediastinum: The visualized portions of the thyroid are normal.No axillary or supraclavicular lymphadenopathy. No mediastinal, hilar orretrocrural lymphadenopathy. Normal heart size. Ectasia of the ascendingaorta measuring 4.2 cm. Lungs and Airways: Calcified granuloma. Subsegmental atelectasis. Noendoluminal lesion. Pleura: The pleural spaces are normal. Abdomen: The visualized upper abdominal organs are unremarkable. Bones and soft tissues: The skeletal structures and soft tissues of thechest wall are unremarkable. IMPRESSION: 1. No CT evidence of pulmonary thromboembolic disease. 2. No intrathoracic mass or consolidation. Please note that all CT scans at this facility use dose modulation,iterative reconstruction, and/or weight-based dosing when appropriate toreduce radiation dose to as low as reasonably achievable. Dictated by Vick Spencer MD @ 02/06/2024 3:14:07 PM (Electronically Signed) Sailaja CHEN CT * (ABNORMAL) LIPID PANEL (11/09/2023 5:01 PM CDT) [facility] CHOLESTEROL,TOTAL 270(H) 100 - 199 mg/dL 11/10/2023 2:15 PM CDT [facility] Comment: Cholesterol, Total Reference Ranges Desirable <200 mg/dL Borderline 200-239 mg/dL High >=240 mg/dL TRIGLYCERIDES 195(H) <150 mg/dL 11/10/2023 2:15 PM CDT [facility] HDL CHOLESTEROL 42 >40 mg/dL 2:15 PM CDT [facility] NON-HDL CHOLESTEROL 228(H) <145 mg/dl 11/10/2023 2:15 PM CDT [facility] CHOL/HDL RATIO 6.43(H) <4.50 11/10/2023 2:15 PM CDT [facility] LDL CHOLESTEROL 189(H) <=130 mg/dL 11/10/2023 2:15 PM CDT [facility] VLDL CHOLESTEROL 39(H) <=30 mg/dL 11/10/2023 2:15 PM CDT [facility] PROVIDER ORDERED STATUS RANDOM 11/10/2023 2:15 PM CDT [facility] Blood BLOOD SPECIMEN / Unknown Venipuncture / Unknown 11/09/2023 5:01 PM CDT 11/09/2023 5:01 PM CDT Rupa Fernandez MD CHEMISTRY [facility] [address] [place] [address], * HPV HIGH RISK (11/09/2023 4:54 PM CDT) TYPE 16 Negative Negative 11/15/2023 1:15 PM CDT [facility] TYPE 18 Negative Negative 11/15/2023 1:15 PM CDT [facility] OTHER HIGH RISK TYPES Negative Negative 11/15/2023 1:15 PM CDT [facility] Other (Cervical) Non-Blood / Unknown 11/09/2023 4:54 PM CDT 11/11/2023 1:43 PM CDT Narrative [facility] - 11/15/2023 1:15 PM CDT HPV types 16, 18, 31, 33, 35, 39, 45, 51, 52, 56, 58, 59, 66 and 68 DNA were undetectable or below the pre-set threshold. Methodology: Renee Dawit 4800 HPV Test Rupa Fernandez MD MICROBIOLO GY [facility] [address] [place] [address], from Last 3 Months or Most Recently Relevant to Health Maintenance Advance Directives * Full Code (Latest Code Status on File) Date Activated Date Inactivated Comments 12/03/2016 4:10 PM 12/07/2016 6:05 PM * Full Code Date Activated Date Inactivated Comments 12/03/2016 5:41 AM 12/03/2016 4:05 PM * Full Code Date Activated Date Inactivated Comments 09/27/2016 10:43 AM 10/01/2016 2:19 PM Question Answer Comments Code Status Discussion: Not Discussed * Full Code Date Activated Date Inactivated Comments 10/14/2015 4:17 PM 10/18/2015 3:21 PM * Full Code Date Activated Date Inactivated Comments 06/24/2010 10:36 AM 06/24/2010 5:02 PM Care Teams Books Salesperson Relationship Specialty Start Date End Date Pcp, No . PCP - General 09/21/23 Lizzy Machado MD [address] [place] [address] Psychiatry 07/07/20
[2024-02-28 12:40] LABS: Basophils Absolute Auto 0.03 K/uL (0.00-0.30); Basophils Percent Auto 0.3 % (0.0-3.0); Eosinophils Absolute Auto 0.11 K/uL (0.00-0.50); Eosinophils Percent Auto 1.2 % (0.0-7.0); Hematocrit 42.4 % (33.0-51.0); Hemoglobin* 14.2 gm/dL (12.0-16.0); Immature Granulocytes Abs Auto 0.01 K/uL (0.00-0.30); Immature Granulocytes Pct Auto 0.1 %; Lymphocytes Absolute Auto 2.65 K/uL (0.90-2.90); Lymphocytes Percent Auto 29.2 % (20-44); Mean Corpuscular HGB Conc 34 gm/dL (32-36); Mean Corpuscular Hemoglobin 31 pg (26-34); Mean Corpuscular Volume 91 fL (80-100); Monocytes Percent Auto 6.4 % (0.0-11.0); Neutrophils Absolute Auto 5.71 K/uL (1.7-7.0); Neutrophils Percent Auto 62.8 % (42.0-72.0); Platelet Count* 218 K/uL (140-440); RDW Coefficient of Variation % 11.9 % (11.5-15.5); Red Blood Count 4.64 m/uL (4.00-5.20); White Blood Count* 9.09 K/uL (4.50-11.00)
[2024-02-28 12:51] VITALS: BP 128/71; PULSE 61; O2SAT 96
[2024-02-28 12:53] LABS: Chloride* 109 mmol/L (96-114); Sodium* 138 mmol/L (135-149)
[2024-02-28 12:55] LABS: Slide Review Reflex No
[2024-02-28 12:56] LABS: Creatinine* 0.6 mg/dL (0.5-1.5); Est. Creatinine Clearance* 92.56; Estimated Glomerular Filt Rate 107 ml/min
[2024-02-28 12:57] LABS: Anion Gap 4 mEq/L (7-15); Blood Urea Nitrogen* 10 mg/dL (7-30); Calcium* 9.3 mg/dL (8.4-10.6); Carbon Dioxide* 25 mmol/L (20-32); Glucose* 97 mg/dL (60-115)
[2024-02-28 13:00] LABS: C Reactive Protein* 0.5 mg/dL (0.5-1.0)
== END 2024-02-28 14:15 | disposition home or self-care (01) ==
PROVIDERS: Emergency Provider Emergency Medicine Emergency Medical Services; PCP Student in an Organized Health Care Education/Training Program
DX: R07.89 Other chest pain (principal)
CPT/HCPCS: 36415; 71275; 80048; 84484; 85025; 86140; 99284; 99285; Q9967